=== PATIENT | male | born 1985 | race Hispanic/Latino ===

== ENCOUNTER 2018-10-26 19:54 | Emergency (ER) | payer SELFPAY ==
--- NOTE | 2018-10-26 20:40 | RAD REPORT ---
EXAM DESCRIPTION: RAD - Chest Pa And Lat (2 Views) - 10/26/2018 8:34 pm CLINICAL HISTORY: COUGH Chest pain. COMPARISON: CHEST SINGLE VIEW dated 11/05/2014; CHEST SINGLE VIEW dated 11/05/2014; CHEST SINGLE VIEW dated 10/05/2012 FINDINGS: The lungs are clear. The heart is normal in size. No displaced fractures. IMPRESSION: No acute or concerning finding suspected.
--- NOTE | 2018-10-26 21:35 | ER ---
Nurse's Notes [facility] Name: Maurilio Ellington Age: 33 yrs Sex: Male : 1985 Arrival Date: 10/26/2018 Time: 19:58 Bed 13 Private MD: None, None Diagnosis: Acute bronchitis, unspecified Presentation: 10/26 20:08 Presenting complaint: Patient states: "I have had a fever since Thursday, and I am jd3 feeling short of breath with coughing.". Transition of care: patient was not received from another setting of care. Onset of symptoms was October 23, 2018. Risk Assessment: Do you want to hurt yourself or someone else? Patient reports no desire to harm self or others. Initial Sepsis Screen: Does the patient meet any 2 criteria? No. Patient's initial sepsis screen is negative. Does the patient have a suspected source of infection? No. Patient's initial sepsis screen is negative. Care prior to arrival: None. 20:08 Method Of Arrival: Ambulatory jd3 20:08 Acuity: YVONNE 3 jd3 Historical: - Allergies: 20:11 No Known Allergies; jd3 - Home Meds: 20:11 None [Active]; jd3 - PMHx: 20:11 None; jd3 - PSHx: 20:11 left chest; right leg; jd3 - Immunization history:: Adult Immunizations up to date. - Social history:: Smoking status: Patient/guardian denies using tobacco. - Ebola Screening: : Patient negative for fever greater than or equal to 101.5 degrees Fahrenheit, and additional compatible Ebola Virus Disease symptoms. Screenin:15 Abuse screen: Denies threats or abuse. Nutritional screening: No deficits noted. tl2 Tuberculosis screening: No symptoms or risk factors identified. Fall Risk None identified. Assessment: 20:15 General: Appears in no apparent distress. uncomfortable, Behavior is calm, cooperative, tl2 appropriate for age. General: Reports fever for 12-24 hours. Pain: Complains of pain in body aches. Neuro: Level of Consciousness is awake, alert, obeys commands, Oriented to person, place, time, situation. Cardiovascular: Denies chest pain. Respiratory: Airway is patent Respiratory effort is even, unlabored, Respiratory pattern is regular, symmetrical. Respiratory: Reports cough that is. GI: No signs and/or symptoms were reported involving the gastrointestinal system. : No signs and/or symptoms were reported regarding the genitourinary system. Derm: Skin is pink, warm \\T\\ dry. Vital Signs: 20:12 BP 141 / 81; Pulse 105; Resp 18 S; Temp 100.4(TE); Pulse Ox 97% on R/A; Weight 77.11 kg jd3 (R); Height 5 ft. 10 in. (177.80 cm) (R); Pain 6/10; 21:45 BP 133 / 78; Pulse 96; Resp 18; Temp 99.5(O); Pulse Ox 97% on R/A; oe 20:12 Body Mass Index 24.39 (77.11 kg, 177.80 cm) jd3 ED Course: 19:58 Patient arrived in ED. mr 19:58 None, None is Private Physician. mr 20:03 Margaux Escoto FNP-C [facility]. snw 20:04 Antoni Mccloud MD is Attending Physician. snw 20:09 Triage completed. jd3 20:12 Arm band placed on. jd3 20:15 Patient has correct armband on for positive identification. Bed in low position. Call tl2 light in reach. Side rails up X 1. 20:15 No provider procedures requiring assistance completed. Patient did not have IV access tl2 during this emergency room visit. 20:21 Rosa Villar, RN is Primary Nurse. tl2 20:35 Chest Pa And Lat (2 Views) XRAY In Process Unspecified. EDMS Administered Medications: 21:55 Drug: predniSONE 40 mg Route: PO; tl2 22:01 Follow up: Response: No adverse reaction; Medication administered at discharge. tl2 21:55 Drug: Pepcid 20 mg Route: PO; tl2 22:01 Follow up: Response: No adverse reaction; Medication administered at discharge. tl2 Outcome: 21:34 Discharge ordered by . snw 22:01 Discharged to home ambulatory. tl2 22:01 Condition: stable 22:01 Discharge instructions given to patient, Instructed on discharge instructions, follow up and referral plans. medication usage, Demonstrated understanding of instructions, follow-up care, medications, Prescriptions given X 2. 22:02 Patient left the ED. tl2 Signatures: Dispatcher [employer] EDMS Margaux Escoto FNP-C [facility]SEL[employer]-Csnw Yamilet Mckee Rosa Villar, RN RN tl2 Severo Phillips Jonathon RN RN jd3 Corrections: (The following items were deleted from the chart) 20:12 20:08 Care prior to arrival: None. beth jd3
--- NOTE | 2018-10-26 21:35 | EDPHYS ---
Physician Documentation [facility] Name: Maurilio Ellington Age: 33 yrs Sex: Male : 1985 Arrival Date: 10/26/2018 Time: 19:58 Bed 13 Private MD: None, None ED Physician Antoni Mccloud HPI: 10/26 21:37 This 33 yrs old Male presents to ER via Ambulatory with complaints of Fever. snw 21:37 The patient reports fever, that was measured at 102 degrees Fahrenheit. Onset: The snw symptoms/episode began/occurred suddenly, 5 day(s) ago, and became persistent. Associated signs and symptoms: Pertinent positives: cough, decreased appetite. Severity of symptoms: At their worst the symptoms were moderate. It is unknown whether or not the patient has had similar symptoms in the past. The patient has not recently seen a physician. G-mom gave him a Rx for PCN that pt has been taking. Historical: - Allergies: 20:11 No Known Allergies; jd3 - Home Meds: 20:11 None [Active]; jd3 - PMHx: 20:11 None; jd3 - PSHx: 20:11 left chest; right leg; jd3 - Immunization history:: Adult Immunizations up to date. - Social history:: Smoking status: Patient/guardian denies using tobacco. - Ebola Screening: : Patient negative for fever greater than or equal to 101.5 degrees Fahrenheit, and additional compatible Ebola Virus Disease symptoms. ROS: 21:35 Eyes: Negative for injury, pain, redness, and discharge, ENT: Negative for injury, snw pain, and discharge, Neck: Negative for injury, pain, and swelling, Cardiovascular: Negative for chest pain, palpitations, and edema. 21:35 Abdomen/GI: Negative for abdominal pain, nausea, vomiting, diarrhea, and constipation, Back: Negative for injury and pain, : Negative for injury, bleeding, discharge, and swelling, MS/Extremity: Negative for injury and deformity, Skin: Negative for injury, rash, and discoloration, Neuro: Negative for headache, weakness, numbness, tingling, and seizure. 21:35 Constitutional: Positive for body aches, fatigue, fever, malaise, poor PO intake. 21:35 Respiratory: Positive for cough. Exam: 21:35 Constitutional: This is a well developed, well nourished patient who is awake, alert, snw and in no acute distress. Head/Face: Normocephalic, atraumatic. Eyes: Pupils equal round and reactive to light, extra-ocular motions intact. Lids and lashes normal. Conjunctiva and sclera are non-icteric and not injected. Cornea within normal limits. Periorbital areas with no swelling, redness, or edema. ENT: Nares patent. No nasal discharge, no septal abnormalities noted. Tympanic membranes are normal and external auditory canals are clear. Oropharynx with moderate/severe redness, no swelling, or masses, exudates, or evidence of obstruction, uvula midline. Mucous membranes moist. Neck: Trachea midline, no thyromegaly or masses palpated, and no cervical lymphadenopathy. Supple, full range of motion without nuchal rigidity, or vertebral point tenderness. No Meningismus. Chest/axilla: Normal chest wall appearance and motion. Nontender with no deformity. No lesions are appreciated. 21:35 Abdomen/GI: Soft, non-tender, with normal bowel sounds. No distension or tympany. No guarding or rebound. No evidence of tenderness throughout. Back: No spinal tenderness. No costovertebral tenderness. Full range of motion. Skin: Warm, dry with normal turgor. Normal color with no rashes, no lesions, and no evidence of cellulitis. MS/ Extremity: Pulses equal, no cyanosis. Neurovascular intact. Full, normal range of motion. Neuro: Awake and alert, GCS 15, oriented to person, place, time, and situation. Cranial nerves II-XII grossly intact. Motor strength 5/5 in all extremities. Sensory grossly intact. Cerebellar exam normal. Normal gait. Psych: Awake, alert, with orientation to person, place and time. Behavior, mood, and affect are within normal limits. 21:35 Cardiovascular: Rate: tachycardic, Rhythm: regular. 21:35 Respiratory: the patient does not display signs of respiratory distress, Respirations: shallow respirations, Breath sounds: wheezing: that is mild, bronchitic cough. Vital Signs: 20:12 BP 141 / 81; Pulse 105; Resp 18 S; Temp 100.4(TE); Pulse Ox 97% on R/A; Weight 77.11 kg jd3 (R); Height 5 ft. 10 in. (177.80 cm) (R); Pain 6/10; 21:45 BP 133 / 78; Pulse 96; Resp 18; Temp 99.5(O); Pulse Ox 97% on R/A; oe 20:12 Body Mass Index 24.39 (77.11 kg, 177.80 cm) jd3 MDM: 20:20 Patient medically screened. snw 21:36 Data reviewed: vital signs, nurses notes. Data interpreted: Pulse oximetry: on room air snw is 97 %. Interpretation: acceptable. Counseling: I had a detailed discussion with the patient and/or guardian regarding: the historical points, exam findings, and any diagnostic results supporting the discharge/admit diagnosis, lab results, radiology results, the need for outpatient follow up, to return to the emergency department if symptoms worsen or persist or if there are any questions or concerns that arise at home. Special discussion: I have referred the patient to see his PCP for further evaluation of high blood pressure. Based on the history and exam findings, there is no indication for further emergent testing or inpatient evaluation. I discussed with the patient/guardian the need to see the primary care provider for further evaluation of the symptoms. 10/26 20:14 Order name: Flu; Complete Time: 21:33 snw 10/26 20:14 Order name: Chest Pa And Lat (2 Views) XRAY; Complete Time: 20:43 snw Administered Medications: 21:55 Drug: predniSONE 40 mg Route: PO; tl2 22:01 Follow up: Response: No adverse reaction; Medication administered at discharge. tl2 21:55 Drug: Pepcid 20 mg Route: PO; tl2 22:01 Follow up: Response: No adverse reaction; Medication administered at discharge. tl2 Disposition: 10/27 07:00 Co-signature as Attending Physician, Antoni Mccloud MD. Disposition: 10/26/18 21:34 Discharged to Home. Impression: Acute bronchitis, unspecified. - Condition is Stable. - Discharge Instructions: Acute Bronchitis, Adult, Rehydration, Adult. - Prescriptions for Zyrtec 10 mg Oral Tablet - take 1 tablet by ORAL route once daily As needed; 20 tablet. Tessalon Perles 100 mg Oral Capsule - take 1 capsule by ORAL route every 8 hours As needed; 15 capsule. Prednisone 20 mg Oral Tablet - take 2 tablet by ORAL route once daily for 5 days; 10 tablet. Pepcid 20 mg Oral Tablet - take 1 tablet by ORAL route once daily for 10 days; 10 tablet. - Work release form, Medication Reconciliation Form, Thank You Letter, Antibiotic Education, Prescription Opioid Use form. - Follow up: Private Physician; When: 2 - 3 days; Reason: Recheck today's complaints, Continuance of care, Re-evaluation by your physician. Follow up: Emergency Department; When: As needed; Reason: Worsening of condition. - Problem is new. - Symptoms have worsened. Signatures: Dispatcher [employer] EDMS Margaux Escoto, [employer]-C [employer] Rosa Villar RN RN tl2 Antoni Mccloud MD MD gs Iftikhar Freire RN RN jd3 Corrections: (The following items were deleted from the chart) 10/26 22:02 21:34 10/26/2018 21:34 Discharged to Home. Impression: Acute bronchitis, unspecified. tl2 Condition is Stable. Forms are Medication Reconciliation Form, Thank You Letter, Antibiotic Education, Prescription Opioid Use. Follow up: Private Physician; When: 2 - 3 days; Reason: Recheck today's complaints, Continuance of care, Re-evaluation by your physician. Follow up: Emergency Department; When: As needed; Reason: Worsening of condition. Problem is new. Symptoms have worsened. snw
[2018-10-26] MEDS ORDERED: FAMOTIDINE 20 MG TAB ONE (21:55)
[2018-10-26] MEDS ORDERED: predniSONE 20 MG TAB ONE (21:55)
[2018-10-26 22:53] VITALS: O2SAT 97
[2018-10-26 22:55] VITALS: BP 133/78; TEMP 99.5
== END 2018-10-26 22:02 | disposition home or self-care (01) ==
LOC: ER 19:54
DX: J20.9 Acute bronchitis, unspecified (principal)
CPT/HCPCS: 71046; 87804; 99283; J7512